=== PATIENT | male | born 1995 | race Caucasian/White ===

== ENCOUNTER 2018-09-22 02:55 | Emergency (ER) | payer OTHER ==
--- NOTE | 2018-09-22 03:21 | EDPHY ---
H & P Stated Complaint: TRIPPED AND FELL INTO FRONT DOOR GLASS, LAC FOREHEAD NOSE Time Seen by Provider: 09/22/18 03:21 HPI/ROS: HPI CHIEF COMPLAINT: Alcohol intoxication, head trauma. Multiple facial lacerations HISTORY OF PRESENT ILLNESS: 23-year-old male, otherwise healthy without any significant medical history presents emergency room with multiple facial lacerations. Patient got intoxicated tonight he fell through a glass door. He sustained 3 lacerations to his face. 1 is located over the nasal bridge. 1 is located to the right forehead 1 is located left forehead. He denies any other areas of injury. This happened much earlier in the night. It is now 330 in the morning when he presents. States he had 10 alcoholic beverages tonight. Tripped and fell through the glass. Reports tetanus shot is up-to-date. Past Medical History: Denies significant medical history Past Surgical History: Denies surgical history Social History: Denies drugs or tobacco. Alcohol this evening. Family History: Noncontributory ROS REVIEW OF SYSTEMS: 10 Systems were reviewed and negative with the exception of the elements mentioned in the history of present illness. Exam Constitutional smells of alcohol, triage nursing summary reviewed, vital signs reviewed, awake/alert. Eyes normal conjunctivae and sclera, EOMI, PERRLA. HENT head/neck: Face exam there multiple facial lacerations present there is 1 located right forehead 2 cm, 1 located left forehead 3 cm, 1 over the nasal bridge 2 cm. Midface stable. Otherwise head neck atraumatic. moist mucus membranes, no epistaxis, neck supple/ no meningismus, no raccoon eyes. Respiratory clear to auscultation bilaterally, normal breath sounds, no respiratory distress, no wheezing. Cardiovascular rate normal, regular rhythm, no murmur, no edema, distal pulses normal. Gastrointestinal soft, non-tender, no rebound, no guarding, normal bowel sounds, no distension, no pulsatile mass. Genitourinary no CVA tenderness. Musculoskeletal no midline vertebral tenderness, full range of motion, no calf swelling, no tenderness of extremities, no meningismus, good pulses, neurovascularly intact. Skin please see above. Neurologic awake, alert and oriented x 3, AAOx3, moves all 4 extremities equally, motor intact, sensory intact, CN II-XII intact, normal cerebellar, normal vision, normal speech. Psychiatric normal mood/affect. Heme/Lymph/Immune no lymphadenopathy. Differential Diagnosis: Includes but is not limited to in a particular order multiple facial laceration, soft tissue injury, intracranial bleed, skull fracture, foreign bodies. Medical Decision Making: Plan for this patient CT scan head without contrast rule out intracranial trauma given fall through a glass door, head trauma alcohol intoxication. Will repair the patient's lacerations after copiously irrigating splint for foreign bodies. Re-evaluation: CT scan head without contrast negative for acute traumatic injury brain clean no evidence of fracture lacerations present. No foreign bodies visualized Laceration Repair Procedure: Verbal Consent was obtained, Under sterile conditions, The patient had lidocaine with epinephrine used approximately 5ccs to local anesthetize the Left Forehead 5CM Laceration. The wound was copiously irrigated with sterile fluid, the wound was explored for foreign bodies there were none visualized, the wound was explored with a sterile glove to the base. There are no deep structures involved, including no arterial injury. FOUR interrupted 5.O PROLENE Sutures were placed in this patient's laceration. He had good close approximation of the wound edges. He Tolerated this well. Laceration Repair Procedure: Verbal Consent was obtained, Under sterile conditions, The patient had lidocaine with epinephrine used approximately 3ccs to local anesthetize the Mid Forehead 1CM Laceration. The wound was copiously irrigated with sterile fluid, the wound was explored for foreign bodies there were none visualized, the wound was explored with a sterile glove to the base. There are no deep structures involved, including no arterial injury. ONE interrupted 5.O PROLENE Sutures were placed in this patient's laceration. He had good close approximation of the wound edges. He Tolerated this well. Laceration Repair Procedure: Verbal Consent was obtained, Under sterile conditions, The patient had lidocaine with epinephrine used approximately 3ccs to local anesthetize the Right forehead 3CM Laceration. The wound was copiously irrigated with sterile fluid, the wound was explored for foreign bodies there were none visualized, the wound was explored with a sterile glove to the base. There are no deep structures involved, including no arterial injury. THREE 6.O PROLENE interrupted Sutures were placed in this patient's laceration. He had good close approximation of the wound edges. He Tolerated this well. Laceration Repair Procedure: Verbal Consent was obtained, Under sterile conditions, The patient had lidocaine with epinephrine used approximately 2ccs to local anesthetize the 2CM nasal bridge Laceration. The wound was copiously irrigated with sterile fluid, the wound was explored for foreign bodies there were none visualized, the wound was explored with a sterile glove to the base. There are no deep structures involved, including no arterial injury. ONE 5.O PROLENE interrupted Sutures were placed in this patient's laceration. He had good close approximation of the wound edges. He Tolerated this well. Patient understands have lacerations sutures removed in 7 days. Keep the wound clean, dry and protected intact Return emergency room if any worsening symptoms. Source: Patient - Personal History Current Tetanus/Diphtheria Vaccine: Yes Current Tetanus Diphtheria and Acellular Pertussis (TDAP): Yes - Medical/Surgical History Hx Asthma: No Hx Chronic Respiratory Disease: No Hx Diabetes: No Hx Cardiac Disease: No Hx Renal Disease: No Hx Cirrhosis: No Hx Alcoholism: No Hx HIV/AIDS: No Hx Splenectomy or Spleen Trauma: No Other PMH: unknown - Social History Smoking Status: Never smoked Constitutional: Initial Vital Signs Temperature (C) 36.8 C 09/22/18 02:59 Heart Rate 111 H 09/22/18 02:59 Respiratory Rate 18 09/22/18 02:59 Blood Pressure 127/99 H 09/22/18 02:59 O2 Sat (%) 93 09/22/18 02:59 O2 Delivery Mode Room Air Allergies/Adverse Reactions: No Known Allergies Allergy (Unverified 09/22/18 03:01) Home Medications: Medication Instructions Recorded NK [No Known Home Meds] 12/06/15 Departure - Departure Disposition: Home, Routine, Self-Care Clinical Impression: Laceration Condition: Good Instructions: Care For Your Stitches (ED), Laceration (ED) Additional Instructions: 1. Your sutures need to be removed in 7 days. 2. Keep your wounds clean, dry and protected. 3. Warm soapy water over them when you showers fine. 4. Return if any further symptoms questions or concerns. Referrals: NONE *PRIMARY CARE P,. [Primary Care Provider] - As per Instructions
[2018-09-29 08:41] VITALS: BP 135/75
== END 2018-09-22 04:49 | disposition home or self-care (01) ==
PROC: 09QKXZZ Repair Nasal Mucosa and Soft Tissue, External Approach (ICD-10-PCS; principal; 2018-09-22)
PROC: 0HQ1XZZ Repair Face Skin, External Approach (ICD-10-PCS; principal; 2018-09-22)
DX: S01.21XA Laceration without foreign body of nose, initial encounter (principal); S01.81XA Laceration without foreign body of other part of head, initial encounter; W25.XXXA Contact with sharp glass, initial encounter; Y92.9 Unspecified place or not applicable; Y93.9 Activity, unspecified; Y99.9 Unspecified external cause status